=== PATIENT | female | born 1945 | race Caucasian/White ===

== ENCOUNTER 2019-10-24 12:47 | Inpatient (IN) | payer BC, MEDICARE ==
[~2019-10-24] VITALS: Ht 154.9 cm; Wt 102.3 kg
[2019-10-24] MEDS ORDERED: CALCIUM 600MG+D1 TAB PO (12:59)
[2019-10-24] MEDS ORDERED: MULTI VITAMINS1 TAB PO (12:59)
[2019-10-24] MEDS ORDERED: ICAPS TABLET1 EACH PO (13:00)
[2019-10-24] MEDS ORDERED: ZYRTEC5 MG PO (13:01)
[2019-10-24 13:52] LABS: HEMATOCRIT 40.9 % (37.0-47.0); HEMOGLOBIN 13.9 g/dl (12.5-16.0); MEAN CELL VOLUME 90 fl (80.0-100.0); MEAN CORPUSCULAR HEMOGLOBIN 31 pg (27.0-31.0); MEAN CORPUSCULAR HGB CONC 34 g/dl (33.0-37.0); MEAN PLATELET VOLUME 10.4 fl (7.4-10.4); PLATELET COUNT 332 K/mm3 (130-400); RED BLOOD COUNT 4.55 M/mm3 (4.10-5.30); REDCELL DISTRIBUTION WIDTH-CV 12.2 % (11.5-14.5)
[2019-10-24 14:00] LABS: ALANINE AMINOTRANSFERASE 16 U/L (9-52); ALBUMIN 4.2 gm/dL (3.5-5.0); ALKALINE PHOSPHATASE 86 U/L (50-136); ANION GAP 13 mmol/L (7-16); AST,SGOT 28 U/L (15-37); BILIRUBIN,TOTAL 0.7 mg/dL (0.0-1.0); BLOOD UREA NITROGEN 22 mg/dL (7-17); CALCIUM 9.8 mg/dL (8.4-10.2); CARBON DIOXIDE 24 mmol/L (22-30); CHLORIDE 94 mmol/L (98-107); GLUCOSE 149 mg/dL (74-106); LIPASE 28 U/L (23-300); POTASSIUM 3.9 mmol/L (3.4-5.0); SODIUM 131 mmol/L (137-145); TOTAL PROTEIN 7.9 gm/dL (6.4-8.2)
[2019-10-24 14:09] LABS: TROPONIN-I < 0.012 ng/mL (0.000-0.035)
[2019-10-24 14:12] LABS: BAND 47 % (0-10); LYMPHOCYTE 13 % (20.0-51.0); METAMYELOCYTE 1 % (0-0); NEUTROPHILS 33 % (42.0-75.2); PLATELET ESTIMATE NORMAL (NORMAL)
[2019-10-24 14:13] LABS: C-REACTIVE PROTEIN 15.3 mg/dL (0.0-0.9)
[2019-10-24 19:04] VITALS: BP 102/82; PULSE 86
[2019-10-24 19:19] VITALS: BP 122/93; PULSE 92
[2019-10-24 19:49] VITALS: BP 132/67; PULSE 89
[2019-10-24 20:19] VITALS: BP 130/63; PULSE 91
[2019-10-24 21:19] VITALS: BP 141/65; PULSE 98
[2019-10-24 22:19] VITALS: BP 139/65; PULSE 95
[2019-10-25 00:08] VITALS: BP 139/69; PULSE 99; TEMP 99.7
--- NOTE | 2019-10-25 01:53 | NUR ---
Patient up to room at shift change. alert and oriented. c/o moderate pain to abd. prn morphine and motrin given. x4 laps with swiftset CDI. castaneda draining kendrick clear urine. IVF infusing to L AC IV. c/o sore throat, due to rough intubation, ice chips provided. had some difficulty swallowing medications but tolerated. titrated O2 down to 2 L via NC and will continue to titrate down. dry cough noted, patient stated she did not have a cough before surgery, most likely due to intubation. no further needs at this time. will continue to monitor.
[2019-10-25 03:15] VITALS: BP 139/69; PULSE 104; TEMP 98.6
[2019-10-25 06:40] LABS: MEAN CELL VOLUME 91 fl (80.0-100.0); MEAN CORPUSCULAR HGB CONC 34 g/dl (33.0-37.0); MEAN PLATELET VOLUME 10.3 fl (7.4-10.4); PLATELET COUNT 331 K/mm3 (130-400); RED BLOOD COUNT 3.89 M/mm3 (4.10-5.30); REDCELL DISTRIBUTION WIDTH-CV 12.8 % (11.5-14.5)
[2019-10-25 06:51] LABS: CALCIUM 8.4 mg/dL (8.4-10.2); CREATININE, serum 0.76 (0.52-1.25); POTASSIUM 3.9 mmol/L (3.4-5.0)
[2019-10-25 06:54] VITALS: BP 144/74; PULSE 103; TEMP 98.9
[2019-10-25 06:54] LABS: HEMATOCRIT 35.5 % (37.0-47.0); HEMOGLOBIN 11.9 g/dl (12.5-16.0); MEAN CORPUSCULAR HEMOGLOBIN 31 pg (27.0-31.0)
--- NOTE | 2019-10-25 08:00 | NUR ---
Patient in bed resting. Alert and oriented x 3. Assessment complete. Lap sites x 4 with edges well approximated. Bourne to dependent drainge with clear kendrick urine in bag. Fluids infusing per orders to left AC iv, patient states she has not been drinking much. States soreness to abdomen. Denies further needs at this time.
--- NOTE | 2019-10-25 10:59 | NUR ---
Medical Claims Representative met with patient to discuss discharge planning. Patient lives alone in [place] and provided contact information for her daughter Rosario (ph#[phone]). Patient sees Dr. Ani Mcleod for primary care and obtains medications from [facility] pharmacy in [place]. Patient uses a pharmacy as she is employed at [employer] in . Patient states if she needs medications immediately upon discharge to send them to a pharmacy in [place]. Patient denies use of DME and reports independence with ADLS. Patient is currently on oxygen although she does not have home oxygen. SW to continue to monitor. Patient does not have Advance Directives but was interested in taking home the form. SW provided. Patient plans to return home upon discharge. Patient states if she cannot drive herself home she has friends she can call for a ride. No additional needs identified at this time.
[2019-10-25 11:52] VITALS: BP 146/67; PULSE 91; TEMP 97.7
[2019-10-25 15:31] VITALS: BP 130/59; PULSE 82; TEMP 98.4
--- NOTE | 2019-10-25 18:10 | NUR ---
Discontinued castaneda catheter per orders. Patient tolerated procedure well. Pericare provided. Denies further needs at this time.
--- NOTE | 2019-10-25 18:15 | NUR ---
Patient has done well throghout the day. Has been up to recliner for all meals. States soreness to abdomen but refuses additional pain medications. Encouraged patient to increase fluid intake. Tolerating clear liquids but not much else per patient. Denies further needs at this time.
[2019-10-25 20:11] VITALS: BP 131/59; PULSE 87; TEMP 98.5
--- NOTE | 2019-10-25 20:45 | NUR ---
Pt. laying in bed at this time. Pt. is A&OX3, assessment complete. INT to lt. ac patent. Pt. reports pain at a 2 on pain scale. Abd. lap sites x4 well approximated. Pt. denies further needs, call light within reach.
[2019-10-26] VITALS (7 sets, daily range): BP systolic 126–149; BP diastolic 57–79; PULSE 85–103; TEMP 97.3–98.8
--- NOTE | 2019-10-26 08:00 | NUR ---
Patient sitting up on edge of bed attempting to eat breakfast. Patient states she does not have much of an appetite. Continues belching and passing gas. States she has been having diarrhea throughout the day. States pain 3/10 to abdomen. Lap sites x 4 with edges well approximtated. Errythema noted to umbilicus. INT to LAC without complications. Denies further needs at this time. Will continue to monitor.
--- NOTE | 2019-10-26 10:36 | NUR ---
Patient was either sleeping or resting and I did not want to disturb them.
--- NOTE | 2019-10-26 16:45 | NUR ---
up in bathroom, bedside shift report received from NATALIIA Castañeda
--- NOTE | 2019-10-26 17:00 | NUR ---
Patient has done well throughout the day. Continues to have loose stools throughout the day. Nausea throughout the day, better with zofran, continues to deny pain. Denies further needs. Reported off to Hayley WILLIAM.
--- NOTE | 2019-10-26 17:00 | NUR ---
back in bed now, c/o terrible gas still and uncontrollable diarrhea, does state zofran given earlier has helped
--- NOTE | 2019-10-26 18:50 | NUR ---
bedside shift report given to NATALIIA Tellez
--- NOTE | 2019-10-26 19:04 | NUR ---
bedside shift report given to NATALIIA Andrews
--- NOTE | 2019-10-26 21:15 | NUR ---
Pt. laying in bed at this time. Pt. is A&OX3, assessment complete. INT to lt. ac patent. Abd. lap sites x4 well approximated. Pt. reports that she has have several episodes of loose stool. Dr. Ye notified, New orders received. Pt. also reported mild nausea, gave zofran. Pt. reported pain at a 4 on pain scale. Pt. denies further needs, call light within reach.
[2019-10-27 07:31] VITALS: BP 132/59; PULSE 97; TEMP 97.7
--- NOTE | 2019-10-27 09:00 | NUR ---
Dr Ye here to see patient.
--- NOTE | 2019-10-27 10:00 | NUR ---
Patient alert and oriented, answers questions appropriately. See assessment. Abdomen soft, non tender, non distended. Bowel sounds active x 4. +Flatus. +Bowel movement. Lap sites to abdomen with edges well approximated, no redness or drainage noted. Post op exercises reviewed with patient. Patient requires assist x1 with many ADLs, ex: cannot put socks on, move herself in bed, get herself out of bed, pull on own underwear. Encouraged patient to perform these tasks on her own. No other c/o at this time.
[2019-10-27 11:35] VITALS: BP 126/59; PULSE 76; TEMP 97.3
[2019-10-27 16:30] VITALS: BP 143/75; PULSE 84; TEMP 97.9
[2019-10-27 19:49] VITALS: BP 135/76; PULSE 91; TEMP 98.4
--- NOTE | 2019-10-27 23:57 | NUR ---
Pt. assisted to sit up at bedside. Pt. c/o lower back pain at this time. In the process of giving Tylenol and Motrin when pt. vomits all over bedside table. Dr. Ye notified and new order for Phenergan received. Pt. cleaned up, and floor and bedside table. Decided to wait on pills til after phenergan given. IV to lt. ac leaky, new site started to lt. hand by payroll supervisor. Shift assessment also completed. Pt. is A&OX3. Abd. lap incisions CDI. Pt. ambulated to the chair while room being cleaned. Pt. given a hot pack for lower back pain. Will monitor.
[2019-10-28 00:19] VITALS: BP 134/63; PULSE 90; TEMP 98.1
[2019-10-28 04:14] VITALS: BP 118/60; PULSE 100; TEMP 98.5
[2019-10-28 08:15] VITALS: BP 112/54; PULSE 91; TEMP 97.6
[2019-10-28 09:53] LABS: HEMOGLOBIN 12.2 g/dl (12.5-16.0); MEAN CELL VOLUME 89 fl (80.0-100.0); MEAN CORPUSCULAR HEMOGLOBIN 30 pg (27.0-31.0); MEAN CORPUSCULAR HGB CONC 34 g/dl (33.0-37.0); MEAN PLATELET VOLUME 9.9 fl (7.4-10.4); PLATELET COUNT 407 K/mm3 (130-400); RED BLOOD COUNT 4.06 M/mm3 (4.10-5.30); REDCELL DISTRIBUTION WIDTH-CV 12.7 % (11.5-14.5)
--- NOTE | 2019-10-28 10:00 | NUR ---
Patient alert and oriented, answers questions appropriately. See assessment. Abdomen soft, non tender, non distended. Bowel sounds active x4 quads. +Flatus. +Bowel movement. Lap sites to abdomen with edges well approximated, no redness or drainage noted. No c/o pain or discomfort.
[2019-10-28 10:02] LABS: CALCIUM 8.6 mg/dL (8.4-10.2); CREATININE, serum 1.76 (0.52-1.25)
[2019-10-28 12:17] VITALS: BP 135/67; PULSE 89; TEMP 97.6
--- NOTE | 2019-10-28 13:00 | NUR ---
Dr Mendoza here to see patient.
[2019-10-28 17:07] VITALS: BP 110/92; PULSE 100; TEMP 98.2
[2019-10-28 20:05] VITALS: BP 142/57; PULSE 91; TEMP 97.5
--- NOTE | 2019-10-28 21:42 | NUR ---
Pt doing well so far this shift. Alert and oriented withi VSS. Has not had any N/V so far. Did have some diarrhea this shift. Heart and lung sounds normal. 5 lap sites to abdomen CD&I, salcido set. Tolerating clear diet well. PT denies needs at this time call light within reach, will continue to monitor
--- NOTE | 2019-10-29 04:07 | NUR ---
Pt has had uneventful night. No n/v, some diarrhea. Slept well. refused tylenol. pt denies needs. call light within reach, will continue to monitor
[2019-10-29 04:49] VITALS: BP 125/55; PULSE 85; TEMP 97.7
[2019-10-29 08:04] LABS: HEMOGLOBIN 13.2 g/dl (12.5-16.0); MEAN CELL VOLUME 91 fl (80.0-100.0); MEAN CORPUSCULAR HEMOGLOBIN 30 pg (27.0-31.0); MEAN CORPUSCULAR HGB CONC 33 g/dl (33.0-37.0); MEAN PLATELET VOLUME 9.8 fl (7.4-10.4); PLATELET COUNT 453 K/mm3 (130-400); RED BLOOD COUNT 4.38 M/mm3 (4.10-5.30); REDCELL DISTRIBUTION WIDTH-CV 13.1 % (11.5-14.5)
[2019-10-29 08:09] VITALS: BP 123/62; PULSE 87; TEMP 98.2
[2019-10-29 08:34] LABS: CALCIUM 8.9 mg/dL (8.4-10.2); CREATININE, serum 0.75 (0.52-1.25); MAGNESIUM 2.6 mg/dL (1.6-2.3); PHOSPHOROUS 1.8 mg/dL (2.5-4.5)
[2019-10-29 08:54] LABS: POTASSIUM 2.9 mmol/L (3.4-5.0)
--- NOTE | 2019-10-29 09:15 | NUR ---
Patient resting in bed call light in reach and ate her clear liquid breakfast with no nausea reported. This nurse recieved a critical value on K+ level and this was called to Dr. Mendoza. See new orders. Will continue to monitor.
[2019-10-29 11:00] VITALS: BP 118/55; PULSE 81; TEMP 98.1
--- NOTE | 2019-10-29 11:59 | NUR ---
First visit from the spud grader. No needs right now.
--- NOTE | 2019-10-29 14:10 | NUR ---
Patient resting in bed with call light within reach. Patient denies questions at this time.
--- NOTE | 2019-10-29 14:19 | NUR ---
SW met with the patient to follow and review discharge plan. The patient reports that she is doing okay. She states that she still plans to return back home upon discharge. SW discussed home health services. The patient reports that she is not interested in any home health at this time, unless it would be recommended. She states that she has two good friends that are retired that plan to help her when she goes home. No other additional needs at this time, but SW to continue to follow.
--- NOTE | 2019-10-29 15:04 | NUR ---
Patient went for a walk with PT, returned to room. Currently relaxing in bed, call light in reach. Will continue to monitor.
--- NOTE | 2019-10-29 15:18 | NUR ---
Patient reporting that the walking helped her to pass gas and to burp more, but she still feels very full. She was able to swallow her pill whole with water, but was nervous that she might get sick. No episodes of vomiting this afternoon.
[2019-10-29 15:23] VITALS: BP 136/60; PULSE 81; TEMP 98.3
--- NOTE | 2019-10-29 17:40 | NUR ---
Patient had a dring of grape juice and then took 3 bites of soup and then vomited approximatly 50 ml and was foamy and white. She reported that it looked like the food wouldn't go down at all. It just came right back up. Given prn zofran.
[2019-10-29 19:39] VITALS: BP 137/42; PULSE 85; TEMP 98
--- NOTE | 2019-10-29 23:12 | NUR ---
Pt doing ok. Alert and oriented with VSS. Pt heart and lung sounds normal. Pt has 5 lap sites from hernia repair, CD&I, [facility]. Pt bowel sounds active x4 quad. Pt did c/o bloating, she ambulated in hallway about 200ft. Passes some gas and burped. Stated she felt better. Did have an episode of spitting up, about 50cc after taking her pill. Has been tolerating water fine. Potassium was 2.8, is receiving replacement, tolerating well. Pt denies pain or needs. Call light within reach, will continue to monitor
--- NOTE | 2019-10-30 00:35 | NUR ---
pt had episode of diarrhea, brown in color.
--- NOTE | 2019-10-30 03:02 | NUR ---
Pt did have small BM more formed, soft, brown in color
[2019-10-30 03:28] VITALS: BP 155/83; PULSE 100; TEMP 98.4
--- NOTE | 2019-10-30 04:59 | NUR ---
Pt has done ok throughout night. Still c/o gas pain but has improved. Denies needs. Call light within reach, will continue to monitor
[2019-10-30 07:35] LABS: MEAN CELL VOLUME 91 fl (80.0-100.0); MEAN CORPUSCULAR HGB CONC 33 g/dl (33.0-37.0); MEAN PLATELET VOLUME 9.9 fl (7.4-10.4); PLATELET COUNT 369 K/mm3 (130-400); RED BLOOD COUNT 3.53 M/mm3 (4.10-5.30); REDCELL DISTRIBUTION WIDTH-CV 13.2 % (11.5-14.5)
[2019-10-30 07:42] LABS: HEMATOCRIT 32.2 % (37.0-47.0); HEMOGLOBIN 10.7 g/dl (12.5-16.0); MEAN CORPUSCULAR HEMOGLOBIN 30 pg (27.0-31.0)
[2019-10-30 07:49] LABS: CALCIUM 7.7 mg/dL (8.4-10.2); CREATININE, serum 0.53 (0.52-1.25); POTASSIUM 3.9 mmol/L (3.4-5.0)
[2019-10-30 08:30] VITALS: BP 131/62; PULSE 81; TEMP 98.7
--- NOTE | 2019-10-30 11:53 | NUR ---
Patient had Ct scan this am. Dr. Mendoza rounded, plan of care reivewed. Tolerated a small amount of fulls this am. Ivf per orders. VOiding adequately. Brusing noted to left side of abdomen.
[2019-10-30 12:06] VITALS: BP 121/81; PULSE 90; TEMP 98.6
[2019-10-30 17:39] VITALS: BP 157/60; PULSE 91; TEMP 98.2
--- NOTE | 2019-10-30 19:28 | NUR ---
Patient has done well today. We ambulated the halls again this evening & she did well. She continues to void adequately. Ivf. Tolerating her diet, appetite improving. denies nausea. Bedside report to Jaycee.
--- NOTE | 2019-10-30 20:22 | NUR ---
Pt resting in bed, denies nausea or vomitting. States she feels better overall. Abd still somewhat distended. Lap sites x5 CD&I. Pt denies pain or needs. Call light within reach, will continue to monitor
[2019-10-30 21:38] VITALS: BP 145/72; PULSE 90; TEMP 98.7
[2019-10-31 04:00] VITALS: BP 142/71; PULSE 92; TEMP 97.8
--- NOTE | 2019-10-31 05:03 | NUR ---
Pt has done well throughout night. Rested most of night. Went on a walk, passed gas and burped. Denies n/v/diarrhea. Call light within reach, will continue to monitor
[2019-10-31 07:43] LABS: CALCIUM 8.2 mg/dL (8.4-10.2); CREATININE, serum 0.54 (0.52-1.25); PHOSPHOROUS 2.7 mg/dL (2.5-4.5); POTASSIUM 4.1 mmol/L (3.4-5.0)
[2019-10-31 08:38] VITALS: BP 131/62; PULSE 76; TEMP 98.5
--- NOTE | 2019-10-31 11:24 | NUR ---
Pt states when drinking ensure, severe heartburn is occuring
[2019-10-31 12:45] VITALS: BP 130/39; PULSE 90; TEMP 97.9
--- NOTE | 2019-10-31 13:49 | NUR ---
Reported off to Primary Nurse. Patient is currently working with PT and utilizing IS every hour.
[2019-10-31 16:37] VITALS: BP 145/70; PULSE 95; TEMP 98.7
--- NOTE | 2019-10-31 17:25 | NUR ---
PT HAD UNEVENTFUL DAY. WORKED WITH P.T. WAS OUT IN [place] [facility] TODAY. NO ISSUES OR CONSERNS VOICED THIS SHIFT.
--- NOTE | 2019-10-31 19:00 | NUR ---
PATIENT SITTING ON SIDE OF BED DURING CHANGE OF SHIFT REPORT FROM DAY SHIFT WITH NO CONCERNS OR COMPLAINTS REPORTED DURING REPORT.
[2019-10-31 19:27] VITALS: BP 121/67; PULSE 87; TEMP 97.5
--- NOTE | 2019-11-01 00:30 | NUR ---
PATIENT SLEEPING, DOES NOT AWAKEN WHEN DOOR TO ROOM OPENS, BREATHING NONLABORED AND EVEN.
--- NOTE | 2019-11-01 01:59 | NUR ---
REPORTS HAS PRESSURE UNDER STERNAL AREA AFTER ORAL INTAKE OF FLUIDS, DOES NOT MATTER WHAT TYPE OF LIQUIDS ARE INGESTED. OBSERVED PATIENT SITTING ON SIDE OF BED, ROCKING BACK AND FORTH, SIDE TO SIDE WHILE SITTING TO HELP FACILITATE BELCHING WHICH PRODUCES SOME BELCHING THAT HELPED ALLEVIATED THE GAS PRESSURE UNDER THE STERNAL AREA.
--- NOTE | 2019-11-01 03:52 | NUR ---
PATIENT SLEEPING, DOES NOT AWAKEN WHEN DOOR TO ROOM OPENS, BREATHING NONLABORED AND EVEN.
[2019-11-01 04:14] VITALS: BP 132/64; PULSE 86; TEMP 97.9
--- NOTE | 2019-11-01 05:40 | NUR ---
Patient sleeping, does not awaken when door to room opens. Breathing nonlabored and even.
--- NOTE | 2019-11-01 06:54 | NUR ---
PATIENT RESTING IN BED DURING CHANGE OF SHIFT REPORT GIVEN TO DAY SHIFT NURSE. DENIES ANY NEEDS CURRENTLY.
--- NOTE | 2019-11-01 07:36 | NUR ---
Patient sitting up at edge of bed eating breakfast. Minimal complaints of pain. Patient shoudl hopefully discharge today. Ángel pinto.
[2019-11-01 07:45] VITALS: BP 146/74; PULSE 85; TEMP 98.2
[2019-11-01 12:24] VITALS: BP 150/75; PULSE 85; TEMP 98.2
--- NOTE | 2019-11-01 14:29 | NUR ---
The patient is to discharge back home today, 10/31. SW met with the patient and presented and explained the IM form. The patient verbalized understanding, signed, and she was provided a copy. No additional needs at this time.
--- NOTE | 2019-11-01 14:46 | NUR ---
Patient ready for discharge. Dr. Rocha rounded & orders obtained. Patient friend here to take her home. We reviewed all discharge instruction including follow up appt, activity & diet restrictions. Home meds list discussed. Int dc. Patient assisted to dressed. Patient wheeled out with all belongings.
== END 2019-11-01 14:51 | disposition home or self-care (01) | DRG 354 ==
LOC: COL.ER 12:47 → SURG 16:52
PROVIDERS: Emergency Medicine; ADMIT Surgery
PROC: 0DBU4ZZ Excision of Omentum, Percutaneous Endoscopic Approach (ICD-10-PCS; 2019-10-24)
PROC: 8E0W4CZ Robotic Assisted Procedure of Trunk Region, Percutaneous Endoscopic Approach (ICD-10-PCS; 2019-10-24)
PROC: 0WQF4ZZ Repair Abdominal Wall, Percutaneous Endoscopic Approach (ICD-10-PCS; principal; 2019-10-24 17:30)
DX: K43.6 Other and unspecified ventral hernia with obstruction, without gangrene (principal); E87.1 Hypo-osmolality and hyponatremia; N17.9 Acute kidney failure, unspecified; K56.7 Ileus, unspecified; Z88.6 Allergy status to analgesic agent; Z88.5 Allergy status to narcotic agent; E66.01 Morbid (severe) obesity due to excess calories; E87.6 Hypokalemia; R12 Heartburn; E86.0 Dehydration; R19.7 Diarrhea, unspecified
CPT/HCPCS: A4314; A9284; C9113; J1650; J2270; J2405; J2543; J2550; J2704; J3010; J3480; J7030; J7120; Q9967